=== PATIENT | female | born 1960 | race Two or more races ===

== ENCOUNTER → 2025-01-18 | Outpatient (CLI) | payer MEDICAID, SELFPAY ==
--- NOTE | 2025-01-18 11:15 | XR_ITS ---
Examination: Screening digital mammography, bilateral Computer aided detection 3-D breast Tomosynthesis, bilateral Date and time of exam: 01/18/2025, 11:16 AM Comparisons: January 2020 through August 2023 Indications: Screening Technique: Nonmagnified MLO, CC views of the breasts to been obtained, reconstructed from 3-D Tomosynthesis images. R2 computer aided detection program utilized for evaluation of suspicious masses and/or abnormal calcifications. 3-D Tomosynthesis images obtained. Technologist: Findings: There are scattered areas of fibroglandular density. Multiple bilateral benign-appearing oval circumscribed masses. No evidence of suspicious masses or suspicious calcifications. Impression: BI-RADS category 2: Benign findings Recommend 1 year follow-up mammogram
== END | disposition home or self-care (01) ==
LOC: CDIM 11:04
PROVIDERS: PCP Nurse Practitioner; Referring Provider Nurse Practitioner; Visit Provider Nurse Practitioner
DX: Z12.31 Encounter for screening mammogram for malignant neoplasm of breast (principal); R92.323 Mammographic fibroglandular density, bilateral breasts
CPT/HCPCS: 77063; 77067

== ENCOUNTER → 2025-02-02 | Outpatient (CLI) | payer MEDICAID, SELFPAY ==
--- NOTE | 2025-02-02 16:00 | XR_ITS ---
Examination: Breast ultrasound, unilateral, left complete Date and time of exam: February 02, 2025 1620 hours INDICATIONS: Left breast sonogram March 27, 2024 12:00 nodule 7 mm 10:00 nodule 5 mm 04/14/1988 oh 8 mm Technique: Real-time montgomery scale ultrasonographic imaging performed left breast including all 4 quadrants as well as nipple retroareolar and axillary region. Findings: 12:00 cyst 5 x 5 mm 10:00 nodule versus complex cyst 5 x 8 mm 11:00 nodule lobular margins 9 x 6 mm IMPRESSION: BI-RADS Category 3: Probably benign findings One additional 6 month left breast sonogram follow-up is needed
== END | disposition home or self-care (01) ==
PROVIDERS: PCP Internal Medicine; Referring Provider Internal Medicine; Visit Provider Internal Medicine
DX: N60.02 Solitary cyst of left breast (principal)
CPT/HCPCS: 76641